=== PATIENT | female | born 1985 | race Caucasian/White ===

== ENCOUNTER 2022-08-03 13:38 | Emergency (ER) | payer BC, SELFPAY ==
--- NOTE | ~2022-08-03 | XR_ITS ---
XR knee LT 3V DATE: 08/03/2022 14:36 INDICATION: Injury. Medial pain and swelling TECHNIQUE: 3 views COMPARISON: None FINDINGS: Small suprapatellar knee joint effusion is suggested. No fracture or dislocation, radiopaque intra-articular loose body or chondrocalcinosis. Joint spaces are well preserved. No periosteal reaction or bone destruction. IMPRESSION: Small knee joint effusion is suggested; no fracture or dislocation Reviewed, dictated and finalized at location A.
[2022-08-03 13:39] VITALS: BP 127/83; PULSE 75; RESP 16; TEMP 36.6; O2SAT 100
[2022-08-03] MEDS: HYDROcodone/acetaminophen (*CRX) 5-325 MG TABLET 1 TAB PO (14:39)
--- NOTE | 2022-08-03 15:09 | ED.LOWEXIN ---
HPI - Extremity Injury (Lower) General Chief Complaint: Extremity Injury, Lower Stated Complaint: left knee pain Time Seen by Provider: 08/03/22 13:53 History of Present Illness HPI Narrative: Patient is a 36-year-old female who presents ER with left knee pain. Yesterday patient was attempting to wake surfing and as she was pulling up she felt a pop and pain in her left knee. Located over the medial joint line. Radiates up her thigh. Has difficulty bearing weight due to the pain. Also reports limited range of motion. No additional injury. She does think she heard a pop. Related Data Allergies Allergy/AdvReac Type Severity Reaction Status Date / Time No Known Allergies Allergy Verified 08/03/22 14:17 Review of Systems Review of Systems: All systems reviewed & are unremarkable except as noted in HPI and below Musculoskeletal: Musculoskeletal: Denies back pain, Reports arthralgias and Reports joint swelling Neurologic: Denies headache(s), Denies focal weakness and Denies numbness PMFSH Past Medical History Medical History (Updated 08/03/22 @ 15:21 by Da Roldan MD) Healthy female adult Surgical History Surgical History (Updated 08/03/22 @ 15:22 by Da Roldan MD) No pertinent past surgical history Exam Narrative: GENERAL: Well-appearing, well-nourished, and in no acute distress. HEAD: Normocephalic, atraumatic. HEART: Regular rate and rhythm. Normal peripheral pulses. EXTREMITIES: Mostly just exam of the left lower extremity reveals small effusion to the left knee suprapatellar. Tenderness to palpation over the anterior joint line medially. Patella tendon intact. Limited flexion due to pain. Patient can achieve full extension. SKIN: Warm, dry, no rash. NEURO: Alert and oriented x3. PSYCH: Normal mood and affect. Course Course Emergency Course: Patient informed of results. We will put in the immobilizer for comfort and give crutches. Recommend follow-up follow-up with orthopedic surgery. Will treat with anti-inflammatories. Discussed rest, ice, elevation. Vital Signs Vital signs: Vital Signs Temperature 97.9 F 08/03/22 13:39 Pulse Rate 75 08/03/22 13:39 Respiratory Rate 16 08/03/22 13:39 Blood Pressure 127/83 08/03/22 13:39 Pulse Oximetry 100 08/03/22 13:39 Oxygen Delivery Room Air 08/03/22 13:39 Temperature 97.9 F 08/03/22 13:39 Pulse Rate 75 08/03/22 13:39 Respiratory Rate 16 08/03/22 13:39 Blood Pressure 127/83 08/03/22 13:39 Pulse Oximetry 100 08/03/22 13:39 Oxygen Delivery Room Air 08/03/22 13:39 MDM - Extremity Injury (Lower) Imaging Data Radiologist's impression: ITS Impressions Knee X-Ray 08/03/22 14:48 IMPRESSION: Small knee joint effusion is suggested; no fracture or dislocation Discharge Plan Discharge Clinical Impression: Knee sprain Patient Disposition: Home, Self-Care Condition: Stable Instructions: Knee Sprain (ED) Additional Instructions: Return the ER if you have new injury, you have chest pain or shortness of breath, you have additional concerns. Bear weight as tolerated. Follow-up with orthopedic surgery for further evaluation and treatment. You may just bring the knee but he could also have injury to the meniscus or a ligament. Prescriptions: New naproxen 375 mg tablet 375 mg PO BID Qty: 14 0RF Follow-up/Referrals: Levi Muir MD [Physician] - 1 Week PHYSICIAN,RETREAD MOLD OPERATOR [Primary Care Provider] -
== END 2022-08-03 15:33 | disposition home or self-care (01) ==
PROVIDERS: Emergency Provider Emergency Medicine
DX: S83.92XA Sprain of unspecified site of left knee, initial encounter (principal); X50.9XXA Other and unspecified overexertion or strenuous movements or postures, initial encounter; Y93.17 Activity, water skiing and wake boarding
CPT/HCPCS: 73562; 99283; A9270